=== PATIENT | male | born 1945 | race Caucasian/White ===

== ENCOUNTER 2018-01-17 11:14 | Emergency (ER) | payer OTHER, BC ==
[~2018-01-17] VITALS: Ht 175.3 cm; Wt 67.6 kg
[~2018-01-17 11:14] MED LIST: ZES20 PO
[2018-01-17 11:17] VITALS: Ht 175.3 cm; Wt 67.6 kg
[2018-01-17 12:45] VITALS: BP 132/74
== END 2018-01-17 12:45 | disposition home or self-care (01) ==
LOC: ED 11:14
DX: K62.5 Hemorrhage of anus and rectum (principal); I10 Essential (primary) hypertension; E78.00 Pure hypercholesterolemia, unspecified

== ENCOUNTER 2018-04-27 07:49 | Emergency (ER) | payer MEDICARE, BC ==
[~2018-04-27] VITALS: Ht 170.2 cm; Wt 68.7 kg
[2018-04-27 07:58] VITALS: BP 113/76
== END 2018-04-27 08:45 | disposition left against medical advice (07) ==
LOC: ED 07:49
DX: M25.551 Pain in right hip (principal); I10 Essential (primary) hypertension; E11.9 Type 2 diabetes mellitus without complications; E78.00 Pure hypercholesterolemia, unspecified

== ENCOUNTER → 2019-07-30 | Outpatient (CLI) | payer OTHER, BC ==
[2019-07-30 11:15] LABS: BASOPHIL % 0.8 % (0-2); PLATELET COUNT 257 x10^3mcL (130-400)
[2019-07-30 11:26] LABS: RED CELL DISTRIBUTION WIDTH 15.5 % (11.5-14.5)
== END | disposition home or self-care (01) ==
LOC: LB 10:51
DX: C90.00 Multiple myeloma not having achieved remission (principal)

== ENCOUNTER 2020-11-19 10:37 | Emergency (ER) | payer OTHER, BC ==
[~2020-11-19] VITALS: Ht 170.2 cm; Wt 68.0 kg
[2020-11-19 10:43] VITALS: Ht 170.2 cm; Wt 68.0 kg
[2020-11-19 11:30] LABS: BASOPHIL % 0.1 % (0.2-1.5); PLATELET COUNT 216 x10^3mcL (152-348); RED CELL DISTRIBUTION WIDTH 14.4 % (12.1-16.2)
[2020-11-19 11:44] LABS: CALCIUM 8.9 mg/dL (8.5-10.1); CARBON DIOXIDE 28.4 mmol/L (21-32); CHLORIDE SERUM 102 mmol/L (98-107); GLUCOSE SERUM 248 mg/dL (74-106); POTASSIUM SERUM 4.2 mmol/L (3.5-5.1); SODIUM SERUM 137 mmol/L (136-145)
[2020-11-19 11:49] LABS: ALBUMIN 3.5 g/dL (3.4-5.0); ALKALINE PHOSPHATASE 37 U/L (46-116); ALT/SGPT 25 U/L (16-63); AST/SGOT 11 U/L (15-37); BILIRUBIN TOTAL 0.39 mg/dL (0.20-1.00); TOTAL PROTEIN, SERUM 6.4 g/dL (6.4-8.2); URIC ACID 3.5 mg/dL (3.5-7.2)
[2020-11-19 11:59] LABS: MAGNESIUM 2.1 mg/dL (1.8-2.4)
[2020-11-19 12:40] LABS: microscopic required? NO
[2020-11-19 13:02] LABS: UA SPECIFIC GRAVITY 1.025 (1.005-1.035); urine erythrocyte NEGATIVE (NEGATIVE)
[2020-11-19 13:38] LABS: AMPHETAMINE QUAL UR NONE DETECTED (See below)
[2020-11-19 15:58] VITALS: BP 158/80
== END 2020-11-19 15:35 | disposition home or self-care (01) ==
LOC: ED 10:37
PROVIDERS: Student in an Organized Health Care Education/Training Program
DX: R41.0 Disorientation, unspecified (principal); T42.6X5A Adverse effect of other antiepileptic and sedative-hypnotic drugs, initial encounter; C90.00 Multiple myeloma not having achieved remission; I10 Essential (primary) hypertension; E11.9 Type 2 diabetes mellitus without complications; E78.00 Pure hypercholesterolemia, unspecified; Y92.89 Other specified places as the place of occurrence of the external cause
CPT/HCPCS: G0480; J7030